=== PATIENT | female | born 1985 | race Caucasian/White ===

== ENCOUNTER 2017-06-29 20:34 | Emergency (ER) | payer OTHER ==
[~2017-06-29] VITALS: Ht 157.5 cm; Wt 90.7 kg
[2017-06-29 21:40] VITALS: BP 158/93
[2017-06-29] MEDS ORDERED: OMEPRAZOLE 20 M20 M1 PO (21:51)
[2017-06-29] MEDS ORDERED: ALLEGRA ALLERG180 MG PO (21:51)
[2017-06-29] MEDS ORDERED: PRENATAL (21:51)
== END 2017-06-29 21:43 | disposition short-term general hospital (02) ==
LOC: ER 20:34
DX: O26.893 Other specified pregnancy related conditions, third trimester (principal); Z3A.29 29 weeks gestation of pregnancy; R10.9 Unspecified abdominal pain